=== PATIENT | female | born 1965 | race Caucasian/White ===

== ENCOUNTER 2017-01-04 20:15 | Emergency (ER) | payer SELFPAY ==
[~2017-01-04] VITALS: Ht 162.5 cm; Wt 52.2 kg
== END 2017-01-04 22:05 | disposition left against medical advice (07) ==
LOC: ED 20:15
DX: F13.230 Sedative, hypnotic or anxiolytic dependence with withdrawal, uncomplicated (principal); F41.9 Anxiety disorder, unspecified; Z91.018 Allergy to other foods

== ENCOUNTER 2019-04-01 22:12 | Emergency (ER) | payer SELFPAY ==
[~2019-04-01] VITALS: Ht 2 cm; Wt 61.2 kg
[2019-04-02] MEDS ORDERED: NORCO 5-325 TA1 EACH PO (00:29)
== END 2019-04-02 00:54 | disposition home or self-care (01) ==
LOC: ED 22:12
DX: S52.502A Unspecified fracture of the lower end of left radius, initial encounter for closed fracture (principal); S00.12XA Contusion of left eyelid and periocular area, initial encounter; M79.631 Pain in right forearm; Z88.2 Allergy status to sulfonamides; Y04.2XXA Assault by strike against or bumped into by another person, initial encounter; Y93.89 Activity, other specified; Y92.098 Other place in other non-institutional residence as the place of occurrence of the external cause; Y99.8 Other external cause status

== ENCOUNTER → 2019-04-30 | Outpatient (CLI) | payer SELFPAY ==
[~2019-04-30] MED LIST: NORCO 5-325 TA1 EACH PO
== END | disposition home or self-care (01) ==
LOC: RAD 14:10
DX: S52.572D Other intraarticular fracture of lower end of left radius, subsequent encounter for closed fracture with routine healing (principal); M19.032 Primary osteoarthritis, left wrist; X58.XXXD Exposure to other specified factors, subsequent encounter

== ENCOUNTER → 2019-05-19 | Outpatient (CLI) | payer MEDICAID | END | disposition home or self-care (01) | LOC: ORTHO 01:56 | DX: S52.572D Other intraarticular fracture of lower end of left radius, subsequent encounter for closed fracture with routine healing (principal); X58.XXXD Exposure to other specified factors, subsequent encounter ==

== ENCOUNTER → 2019-06-01 | Outpatient (CLI) | payer OTHER | END | disposition home or self-care (01) | LOC: ORTHO 00:39 | DX: S52.572D Other intraarticular fracture of lower end of left radius, subsequent encounter for closed fracture with routine healing (principal); X58.XXXD Exposure to other specified factors, subsequent encounter ==

== ENCOUNTER 2019-11-27 20:17 | Inpatient (IN) | payer OTHER ==
[~2019-11-27] VITALS: Ht 162.6 cm; Wt 79.4 kg
[2019-11-27 20:40] VITALS: BP 138/87
[2019-11-27 21:09] LABS: BILIRUBIN NEGATIVE (NEGATIVE); BLOOD NEGATIVE (NEGATIVE); CLARITY CLEAR (CLEAR); COLOR YELLOW (YELLOW); GLUCOSE NEGATIVE (NEGATIVE); KETONE NEGATIVE (NEGATIVE); NITRITE NEGATIVE (NEGATIVE); UROBILINOGEN 0.2 E.U./dl (0.2-1.0)
[2019-11-27 21:10] LABS: LEUKO ESTERASE TRACE (NEGATIVE); WBC 0-2 wbc/hpf (0-5)
[2019-11-27 21:29] LABS: BASO # 0.1 10*3/uL (0.0-0.1); BASO % 0.6 % (0.0-1.0); EOS # 0.1 10*3/uL (0.0-0.4); EOS % 1.5 % (1.0-4.0); HEMATOCRIT 36.5 % (37.0-47.0); LYMPH # 2.5 10*3/uL (1.3-4.4); LYMPH % 31.5 % (27.0-41.0); MEAN CELL VOLUME 102.2 fl (81.0-99.0); MEAN CORPUSCULAR HGB 35.9 pg (27.0-31.0); MEAN CORPUSCULAR HGB CONC 35.1 g/dl (33.0-37.0); MEAN PLATELET VOLUME 10.6 fl (9.6-12.3); MONO # 0.7 10*3/uL (0.1-1.0); MONO % 8.4 % (3.0-9.0); NEUT # 4.6 10*3/uL (2.3-7.9); NEUT % 57.8 % (47.0-73.0); PLATELET COUNT AUTOMATED 192 10*3/uL (130-400); RED BLOOD COUNT 3.57 10*6/uL (4.10-5.10); RED CELL DISTRI WIDTH 15.4 % (0-14.5)
[2019-11-27 21:40] LABS: ACT PARTIAL THROMBO TIME 25.1 SECONDS (20.0-32.1); INTERNATIONAL NORM RATIO 0.9 (2.0-3.5)
[2019-11-27 22:39] LABS: BUN 8 mg/dl (7-24); CREATININE 0.71 mg/dL (0.55-1.02); SODIUM 134 mmol/L (136-145)
[2019-11-27 22:40] LABS: ALBUMIN 2.8 gm/dl (3.1-4.5); ALKALINE PHOSPHATASE 318 U/L (45-117); CHLORIDE 105 mmol/L (98-107); LIPASE 946 U/L (73-393); POTASSIUM 4.6 mmol/L (3.5-5.1); SGOT/AST 339 IU/L (3-35); SGPT/ALT 158 U/L (12-78); TOTAL PROTEIN 6.7 gm/dL (6.4-8.2)
[2019-11-28 02:24] VITALS: BP 132/80
--- NOTE | 2019-11-28 02:50 | NUR ---
A 54, admitted to , under the services of WINSOME Osorio DO with a diagnosis of TRANSAMINITIS; MACROCYTIC ANEMIA, BACK PAIN. Chief complaint is C/O BACK PAIN. Patient arrived via stretcher from ER. Monitor applied. Initial assessment completed. Vital signs taken and recorded. WINSOME OSORIO DO notified of admission to the unit. Orders received. See assessment for past medical history, medications and allergies. Patient and/or family oriented to unit. [facility] visitation policy reviewed. Clothing/patient valuable form completed. FRANCISCO J DICKERSON
--- NOTE | 2019-11-28 03:30 | NUR ---
MEDICATED WITH ROBAXIN FOR MUSCLE ACHES; NORCO FOR C/O BACK PAIN & RESTORIL FOR SLEEP. CALL LIGHT WITHIN REACH.
[2019-11-28] MEDS ORDERED: OMEPRAZOLE40 MG PO (03:44)
--- NOTE | 2019-11-28 04:25 | NUR ---
RESTING IN BED WITH EYES CLOSED; MEDICATIONS GIVEN EARLIER APPARENTLY EFFECTIVE. IV FLUIDS INFUSING ORDERED; SITE ASYMPTOMATIC. CALL LIGHT WITHIN REACH; BED ALARM ON.
[2019-11-28 06:05] LABS: BASO % 0.4 % (0.0-1.0); EOS # 0.2 10*3/uL (0.0-0.4); EOS % 2.4 % (1.0-4.0); HEMATOCRIT 32.7 % (37.0-47.0); LYMPH % 28.6 % (27.0-41.0); MEAN CELL VOLUME 105.1 fl (81.0-99.0); MEAN CORPUSCULAR HGB 35.4 pg (27.0-31.0); MEAN CORPUSCULAR HGB CONC 33.6 g/dl (33.0-37.0); MEAN PLATELET VOLUME 10.7 fl (9.6-12.3); MONO # 0.5 10*3/uL (0.1-1.0); MONO % 6.5 % (3.0-9.0); NEUT # 4.3 10*3/uL (2.3-7.9); NEUT % 61.5 % (47.0-73.0); PLATELET COUNT AUTOMATED 156 10*3/uL (130-400); RED BLOOD COUNT 3.11 10*6/uL (4.10-5.10)
[2019-11-28 06:23] LABS: ALBUMIN 2.2 gm/dl (3.1-4.5); ALKALINE PHOSPHATASE 254 U/L (45-117); BUN 6 mg/dl (7-24); CHLORIDE 106 mmol/L (98-107); CREATININE 0.67 mg/dL (0.55-1.02); SGOT/AST 194 IU/L (3-35); SODIUM 135 mmol/L (136-145); TOTAL PROTEIN 5.5 gm/dL (6.4-8.2)
[2019-11-28 06:44] LABS: SGPT/ALT 140 U/L (12-78)
--- NOTE | 2019-11-28 10:28 | NUR ---
PT MEDICATED WITH ATIVAN 1MG 1V PER PRN ORDER FOR C/O ANXIETY.
--- NOTE | 2019-11-28 10:29 | NUR ---
PT MEDICATED WITH BENTYL 20MG PO PER PRN ORDER FOR C/O STOMACH ACHES. PT ALSO MEDICATED WITH ROBAXIN 750MG PO PER PRN ORDER AT THIS TIME FOR C/O BACK MUSCLE ACHES.
--- NOTE | 2019-11-28 10:44 | NUR ---
NOTIFIED DR HAGEN OF PT REQUEST FOR ZOFRAN.
[2019-11-28 12:00] VITALS: BP 98/68
--- NOTE | 2019-11-28 14:01 | NUR ---
PT GIVEN NORCO 5/325MG PO PER PRN ORDER FOR C/O PAIN.
[2019-11-28 16:00] VITALS: BP 105/70
--- NOTE | 2019-11-28 16:45 | NUR ---
PT MEDICATED WITH ATIVAN 1MG PO PER PRN ORDER FOR C/O ANXIETY. PT ALSO MEDICATED WITH ROBAXIN 750MG PO PER PRN ORDER AT THIS TIME FOR C/O LOWER BACK ACHES.
[2019-11-28 20:00] VITALS: BP 90/50
--- NOTE | 2019-11-28 20:50 | NUR ---
ZOFRAN GIVEN FOR NAUSEA, ATIVAN GIVEN FOR ANXIETY, AND RESTORIL GIVEN FOR SLEEP.
--- NOTE | 2019-11-28 21:45 | NUR ---
MEDICATION EFFECTIVE, PATIENT SLEEPING COMFORTABLY IN ROOM
--- NOTE | 2019-11-28 23:27 | NUR ---
NROCO GIVEN FOR PAIN RATED A 8 OUT OF 10 TO THE BACK AND SIDE
[2019-11-29] VITALS: BP 91/62
--- NOTE | 2019-11-29 00:28 | NUR ---
24 HR chart check completed.
--- NOTE | 2019-11-29 04:15 | NUR ---
ATIVAN AND MORPHINE GIVEN FOR PAIN RATED A 8 OUT OF 10 TO THE BACK AND ABDOMEN AND ANXIETY
--- NOTE | 2019-11-29 05:15 | NUR ---
ATIVAN AND MORPHINE EFFECTIVE PATIENT RESTING COMFORTABLY IN ROOM
[2019-11-29 05:56] LABS: BASO # 0.1 10*3/uL (0.0-0.1); BASO % 0.8 % (0.0-1.0); EOS # 0.2 10*3/uL (0.0-0.4); EOS % 3.8 % (1.0-4.0); HEMATOCRIT 32.3 % (37.0-47.0); LYMPH # 2.3 10*3/uL (1.3-4.4); MEAN CORPUSCULAR HGB 35.4 pg (27.0-31.0); MEAN CORPUSCULAR HGB CONC 33.1 g/dl (33.0-37.0); MEAN PLATELET VOLUME 11.2 fl (9.6-12.3); MONO # 0.5 10*3/uL (0.1-1.0); MONO % 7.6 % (3.0-9.0); NEUT # 3.1 10*3/uL (2.3-7.9); NEUT % 50.3 % (47.0-73.0); PLATELET COUNT AUTOMATED 165 10*3/uL (130-400); RED BLOOD COUNT 3.02 10*6/uL (4.10-5.10); RED CELL DISTRI WIDTH 16.3 % (0-14.5); WHITE BLOOD COUNT 6.1 10*3/uL (4.8-10.8)
[2019-11-29 05:58] LABS: ALKALINE PHOSPHATASE 239 U/L (45-117); BUN 5 mg/dl (7-24); CHLORIDE 110 mmol/L (98-107); CREATININE 0.66 mg/dL (0.55-1.02); LIPASE 181 U/L (73-393); POTASSIUM 3.2 mmol/L (3.5-5.1); SGOT/AST 119 IU/L (3-35); SGPT/ALT 87 U/L (12-78); SODIUM 140 mmol/L (136-145); TOTAL PROTEIN 5.3 gm/dL (6.4-8.2)
--- NOTE | 2019-11-29 06:11 | NUR ---
CALLED FOR POTASSIUM LEVEL 3.2 AND ALBUMIN LEVEL 2.0
--- NOTE | 2019-11-29 09:43 | NUR ---
PT MEDICATED WITH ROBAXIN 750MG PO PER PRN ORDER FOR C/O BACK ACHES. PT ALSO MEDICATED WITH ZOFRAN 4MG IV PER PRN ORDER FOR C/O NAUSEA AT THIS TIME.
--- NOTE | 2019-11-29 09:50 | NUR ---
ROUNDED TO SEE PATIENT AND ANSWERED ALL OF THE PATIENT'S QUESTIONS. PATIENT VERBALIZES THAT SHE UNDERSTANDS CURRENT CONDITION.
[2019-11-29 12:00] VITALS: BP 119/72
--- NOTE | 2019-11-29 13:14 | NUR ---
PT MEDICATED WITH NORCO 5/325 PO PER PRN ORDER FOR C/O PAIN.
--- NOTE | 2019-11-29 15:37 | NUR ---
NOTIFIED DR PINO THAT PT MANUAL BP 98/40, HR 84 AND PT HAD ONLY DRANK ABOUT 180 ML OF FLUID THAT I HAVE NOTED. FLUIDS PREVIOUSSLY D/C'D. PT SLEEPY AND AROUSES EASILY. WILL CONTINUE TO MONITOR.
[2019-11-29 16:00] VITALS: BP 100/60
--- NOTE | 2019-11-29 16:32 | NUR ---
PATIENT MEDICATED WITH ATIVAN 1MG IV PER PRN ORDER FOR C/O ANXIETY.
--- NOTE | 2019-11-29 17:51 | NUR ---
PT MEDICATED WITH ZOFRAN 4MG IV PER PRN ORDER FOR C/O NAUSEA.
[2019-11-29 20:00] VITALS: BP 101/75
--- NOTE | 2019-11-29 21:00 | NUR ---
PT MEDICATED WITH PRN NORCO FOR C/O ABDOMINAL AND BACK PAIN RATED A 6/10. WILL MONITOR FOR EFFECTIVENESS.
[2019-11-30] VITALS: BP 104/64
[2019-11-30 06:15] LABS: BASO % 0.6 % (0.0-1.0); EOS # 0.2 10*3/uL (0.0-0.4); EOS % 4.3 % (1.0-4.0); HEMATOCRIT 34.3 % (37.0-47.0); LYMPH % 43.3 % (27.0-41.0); MEAN CELL VOLUME 106.9 fl (81.0-99.0); MEAN CORPUSCULAR HGB 34.3 pg (27.0-31.0); MEAN CORPUSCULAR HGB CONC 32.1 g/dl (33.0-37.0); MEAN PLATELET VOLUME 10.9 fl (9.6-12.3); MONO # 0.4 10*3/uL (0.1-1.0); MONO % 7.6 % (3.0-9.0); NEUT % 43.3 % (47.0-73.0); PLATELET COUNT AUTOMATED 167 10*3/uL (130-400); RED BLOOD COUNT 3.21 10*6/uL (4.10-5.10); RED CELL DISTRI WIDTH 16.6 % (0-14.5); WHITE BLOOD COUNT 4.6 10*3/uL (4.8-10.8)
[2019-11-30 06:25] LABS: BUN 3 mg/dl (7-24); CHLORIDE 111 mmol/L (98-107); CHOLESTEROL 406 mg/dL (<200); POTASSIUM 3.9 mmol/L (3.5-5.1); SGOT/AST 100 IU/L (3-35); SGPT/ALT 78 U/L (12-78); SODIUM 143 mmol/L (136-145); TRIGLYCERIDES 212 mg/dl (<150); VLDL CHOLESTEROL 42 mg/dL (6-40)
[2019-11-30 06:27] LABS: ALKALINE PHOSPHATASE 239 U/L (45-117); HDL CHOLESTEROL 31 mg/dl (40-60); LDL CHOLESTEROL 333 mg/dL (9-159); TOTAL PROTEIN 5.4 gm/dL (6.4-8.2)
[2019-11-30 08:00] VITALS: BP 110/66
--- NOTE | 2019-11-30 08:42 | NUR ---
MEDICATED WITH PRN PO NORCO FOR BACK AND HIPS PAIN.
--- NOTE | 2019-11-30 09:00 | NUR ---
Customer Acquisition Manager in to talk to patient. Patient states lives at home with mother. There are no steps in the home. 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 EZEQUIEL BRUCE
--- NOTE | 2019-11-30 09:40 | NUR ---
PRN PO NORCO NOT EFFECTIVE, PER PATIENT.
--- NOTE | 2019-11-30 10:18 | NUR ---
MEDICATED WITH PRN IV MORPHINE AND PRN PO ROBAXIN FOR UNRELEIVED HIPS AND BACK PAIN.
--- NOTE | 2019-11-30 11:18 | NUR ---
PRN MORPHINE AND ROBAXIN EFFECTIVE, PER PATIENT.
[2019-11-30 12:00] VITALS: BP 144/75
--- NOTE | 2019-11-30 14:25 | NUR ---
PATIENT WITH COMPLAINTS OF PAIN, ADMINISTERED PO PRN NORCO.
--- NOTE | 2019-11-30 15:19 | NUR ---
PRN PO NORCO SOMEWHAT EFFECTIVE, PER PATIENT.
[2019-11-30 16:00] VITALS: BP 112/71
--- NOTE | 2019-11-30 16:25 | NUR ---
PATIENT STATES THAT SHE IS HAVING SOME PAIN AND ANXIETY, ADMINISTERED IV ATIVAN AND IV MORPHINE FOR THESE SYMPTOMS
--- NOTE | 2019-11-30 16:54 | NUR ---
MORPHINE EFFECTIVE PER PATIENT
[2019-11-30 20:00] VITALS: BP 100/55
[2019-12-01] VITALS: BP 100/63
[2019-12-01 06:28] LABS: HEMATOCRIT 31.9 % (37.0-47.0); MEAN CELL VOLUME 109.6 fl (81.0-99.0); MEAN CORPUSCULAR HGB 35.1 pg (27.0-31.0); MEAN PLATELET VOLUME 10.6 fl (9.6-12.3); PLATELET COUNT AUTOMATED 172 10*3/uL (130-400); RED BLOOD COUNT 2.91 10*6/uL (4.10-5.10); RED CELL DISTRI WIDTH 16.6 % (0-14.5); WHITE BLOOD COUNT 4.6 10*3/uL (4.8-10.8)
[2019-12-01 06:39] LABS: ALBUMIN 1.9 gm/dl (3.1-4.5); BUN 5 mg/dl (7-24); CHLORIDE 111 mmol/L (98-107); CREATININE 0.63 mg/dL (0.55-1.02); LIPASE 241 U/L (73-393); POTASSIUM 3.8 mmol/L (3.5-5.1); SGOT/AST 91 IU/L (3-35); SGPT/ALT 70 U/L (12-78); SODIUM 142 mmol/L (136-145); TOTAL PROTEIN 5.3 gm/dL (6.4-8.2)
[2019-12-01 06:40] LABS: ALKALINE PHOSPHATASE 228 U/L (45-117)
[2019-12-01 07:18] LABS: BASOPHILS 1 % (0-1); TOTAL CELLS COUNTED 100 #CELLS
[2019-12-01 07:19] LABS: PLATELET SUFFICIENCY NORMAL (NORMAL); POLYCHROMASIA SLIGHT
[2019-12-01 08:00] VITALS: BP 146/94
--- NOTE | 2019-12-01 09:00 | NUR ---
case management visits with patient, she states she is a possibly discharge to home today, she denies any home needs
--- NOTE | 2019-12-01 10:08 | NUR ---
NORCO ADMINISTERED FOR PT C/O 12/06 RIGHT BACK PAIN. WILL MONITOR AND REASSESS.
[2019-12-01] MEDS ORDERED: NORCO 5-325 TA1 EACH PO (11:16)
[2019-12-01] MEDS ORDERED: LIPITOR40 MG PO (12:21)
--- NOTE | 2019-12-01 13:23 | NUR ---
Discharge instructions reviewed with patient/family. Patient receptive and verbalizes understanding. Follow-up care arranged. Written instructions given to patient/family. Script for norco given to patient. Hep lock removed from right upper arm. All belongings left with patient. Off the floor at this time. GIANNA BINGHAM
== END 2019-12-01 13:28 | disposition home or self-care (01) | DRG 241 ==
LOC: ED 20:17 → EDHOLD 11-28 01:38 → 4E 11-28 01:38
PROVIDERS: Emergency Medicine Emergency Medical Services; Family Medicine; Internal Medicine; Student in an Organized Health Care Education/Training Program; ADMIT Internal Medicine
DX: K29.80 Duodenitis without bleeding (principal); K85.20 Alcohol induced acute pancreatitis without necrosis or infection; R74.0 Nonspecific elevation of levels of transaminase and lactic acid dehydrogenase [LDH]; E87.1 Hypo-osmolality and hyponatremia; R73.9 Hyperglycemia, unspecified; E83.41 Hypermagnesemia; E80.6 Other disorders of bilirubin metabolism; F10.10 Alcohol abuse, uncomplicated; F41.9 Anxiety disorder, unspecified; D53.9 Nutritional anemia, unspecified; E83.39 Other disorders of phosphorus metabolism; E87.6 Hypokalemia; E87.8 Other disorders of electrolyte and fluid balance, not elsewhere classified; K76.0 Fatty (change of) liver, not elsewhere classified; E43 Unspecified severe protein-calorie malnutrition; M19.90 Unspecified osteoarthritis, unspecified site; F17.210 Nicotine dependence, cigarettes, uncomplicated; Z71.6 Tobacco abuse counseling; Z88.2 Allergy status to sulfonamides; Z82.49 Family history of ischemic heart disease and other diseases of the circulatory system; Z82.3 Family history of stroke; Z80.8 Family history of malignant neoplasm of other organs or systems; Z82.5 Family history of asthma and other chronic lower respiratory diseases; Z98.51 Tubal ligation status; Z68.29 Body mass index [BMI] 29.0-29.9, adult

== ENCOUNTER → 2020-07-15 | Outpatient (CLI) | payer OTHER ==
[~2020-07-15] MED LIST changes: +LIPITOR40 MG PO; +MACROBID100 M1 PO; +OMEPRAZOLE40 MG PO
== END | disposition home or self-care (01) ==
LOC: CT 12:41
PROVIDERS: ATTEND Internal Medicine
DX: R10.9 Unspecified abdominal pain (principal)

== ENCOUNTER 2020-07-18 15:37 | Emergency (ER) | payer OTHER ==
[~2020-07-18] VITALS: Ht 162.5 cm; Wt 82.6 kg
[~2020-07-18 15:37] MED LIST changes: -MACROBID100 M1 PO
[2020-07-18 16:33] LABS: BASO # 0.1 10*3/uL (0.0-0.1); EOS # 0.1 10*3/uL (0.0-0.4); EOS % 1.6 % (1.0-4.0); HEMATOCRIT 39.7 % (37.0-47.0); LYMPH # 2.6 10*3/uL (1.3-4.4); LYMPH % 41.6 % (27.0-41.0); MEAN CELL VOLUME 101.8 fl (81.0-99.0); MEAN CORPUSCULAR HGB 34.6 pg (27.0-31.0); MEAN PLATELET VOLUME 10.2 fl (9.6-12.3); MONO # 0.4 10*3/uL (0.1-1.0); MONO % 6.9 % (3.0-9.0); NEUT % 48.4 % (47.0-73.0); PLATELET COUNT AUTOMATED 235 10*3/uL (130-400); RED CELL DISTRI WIDTH 13.2 % (0-14.5); WHITE BLOOD COUNT 6.2 10*3/uL (4.8-10.8)
[2020-07-18 16:50] LABS: ALBUMIN 3.5 gm/dl (3.1-4.5); ALKALINE PHOSPHATASE 131 U/L (45-117); BUN 15 mg/dl (7-24); CHLORIDE 105 mmol/L (98-107); CREATININE 0.88 mg/dL (0.55-1.02); LIPASE 88 U/L (73-393); POTASSIUM 3.7 mmol/L (3.5-5.1); SGOT/AST 63 IU/L (3-35); SGPT/ALT 58 U/L (12-78); SODIUM 142 mmol/L (136-145)
[2020-07-18 16:51] LABS: TROPONIN I < 0.015 ng/ml (<0.045)
[2020-07-18 17:18] LABS: BILIRUBIN Negative (Negative); BLOOD Negative (Negative); CLARITY Clear (Clear); COLOR Yellow (Yellow); GLUCOSE Negative (Negative); KETONE Negative (Negative); LEUKO ESTERASE Trace (Negative); NITRITE Negative (Negative); SPECIFIC GRAVITY 1.015 (1.001-1.030); UROBILINOGEN 0.2 E.U./dl (0.0-1.0)
[2020-07-18 17:24] LABS: BACTERIA 2+; HYALINE CAST 0-2; RBC 0-2 rbc/hpf (0-2)
[2020-07-18] MEDS ORDERED: MACROBID100 M1 PO (18:09)
== END 2020-07-18 18:12 | disposition home or self-care (01) ==
LOC: ED 15:37
PROVIDERS: Emergency Medicine
DX: N39.0 Urinary tract infection, site not specified (principal); F17.200 Nicotine dependence, unspecified, uncomplicated; Z79.899 Other long term (current) drug therapy; Z88.0 Allergy status to penicillin; Z88.2 Allergy status to sulfonamides

== ENCOUNTER → 2021-02-22 | Outpatient (CLI) | payer OTHER ==
[~2021-02-22] MED LIST changes: +MACROBID100 M1 PO
[2021-02-22 10:17] LABS: BASO # 0.1 10*3/uL (0.0-0.1); BASO % 0.9 % (0.0-1.0); EOS % 0.5 % (1.0-4.0); HEMATOCRIT 42.3 % (37.0-47.0); LYMPH % 30.9 % (27.0-41.0); MEAN CELL VOLUME 106.3 fl (81.0-99.0); MEAN CORPUSCULAR HGB 35.2 pg (27.0-31.0); MEAN CORPUSCULAR HGB CONC 33.1 g/dl (33.0-37.0); MEAN PLATELET VOLUME 9.9 fl (9.6-12.3); MONO # 0.5 10*3/uL (0.1-1.0); MONO % 7.3 % (3.0-9.0); NEUT # 3.8 10*3/uL (2.3-7.9); NEUT % 59.8 % (47.0-73.0); PLATELET COUNT AUTOMATED 247 10*3/uL (130-400); RED BLOOD COUNT 3.98 10*6/uL (4.10-5.10); RED CELL DISTRI WIDTH 13.2 % (0-14.5); WHITE BLOOD COUNT 6.4 10*3/uL (4.8-10.8)
[2021-02-22 10:59] LABS: ALBUMIN 3.9 gm/dl (3.1-4.5); ALKALINE PHOSPHATASE 126 U/L (45-117); BUN 6 mg/dl (7-24); CHLORIDE 101 mmol/L (98-107); CHOLESTEROL 313 mg/dL (<200); CREATININE 0.86 mg/dL (0.55-1.02); FREE T4 0.75 ng/dl (0.76-1.46); LDL CHOLESTEROL 149 mg/dL (9-159); POTASSIUM 3.2 mmol/L (3.5-5.1); SGOT/AST 70 IU/L (3-35); SGPT/ALT 48 U/L (12-78); SODIUM 138 mmol/L (136-145); TOTAL PROTEIN 7.8 gm/dL (6.4-8.2); TRIGLYCERIDES 383 mg/dl (<150)
[2021-02-22 11:19] LABS: VITAMIN D, 25-HYDROXY 25.6 ng/mL (30-100)
== END | disposition home or self-care (01) ==
LOC: LAB 09:15 → CARD 09:30
PROVIDERS: ATTEND Internal Medicine
DX: R06.02 Shortness of breath (principal); I10 Essential (primary) hypertension; E78.2 Mixed hyperlipidemia; E55.9 Vitamin D deficiency, unspecified; Z13.1 Encounter for screening for diabetes mellitus; Z00.00 Encounter for general adult medical examination without abnormal findings

== ENCOUNTER → 2021-06-27 | Outpatient (CLI) | payer OTHER | END | disposition home or self-care (01) | LOC: CARD 14:00 | PROVIDERS: ATTEND Internal Medicine Cardiovascular Disease | DX: R07.89 Other chest pain (principal); Z86.79 Personal history of other diseases of the circulatory system ==

== ENCOUNTER 2022-01-07 12:31 | Emergency (ER) | payer OTHER ==
[~2022-01-07] VITALS: Ht 162.5 cm; Wt 76.7 kg
[2022-01-07 17:24] LABS: BASO # 0.1 10*3/uL (0.0-0.1); EOS # 0.1 10*3/uL (0.0-0.4); HEMATOCRIT 46.5 % (37.0-47.0); LYMPH # 2.1 10*3/uL (1.3-4.4); LYMPH % 29.7 % (27.0-41.0); MEAN CELL VOLUME 101.5 fl (81.0-99.0); MEAN CORPUSCULAR HGB 34.3 pg (27.0-31.0); MEAN CORPUSCULAR HGB CONC 33.8 g/dl (33.0-37.0); MEAN PLATELET VOLUME 10.1 fl (9.6-12.3); MONO # 0.4 10*3/uL (0.1-1.0); MONO % 5.8 % (3.0-9.0); NEUT # 4.4 10*3/uL (2.3-7.9); NEUT % 62.1 % (47.0-73.0); PLATELET COUNT AUTOMATED 302 10*3/uL (130-400); RED BLOOD COUNT 4.58 10*6/uL (4.10-5.10); RED CELL DISTRI WIDTH 13.2 % (0-14.5)
[2022-01-07 17:41] LABS: ALKALINE PHOSPHATASE 156 U/L (45-117); BUN 9 mg/dl (7-24); CHLORIDE 106 mmol/L (98-107); CREATININE 0.79 mg/dL (0.55-1.02); POTASSIUM 4.5 mmol/L (3.5-5.1); SGOT/AST 63 IU/L (3-35); SGPT/ALT 55 U/L (12-78); SODIUM 135 mmol/L (136-145); TOTAL PROTEIN 7.8 gm/dL (6.4-8.2)
== END 2022-01-07 21:45 | disposition home or self-care (01) ==
LOC: ED 12:31
PROVIDERS: Nurse Practitioner Family
DX: S20.219A Contusion of unspecified front wall of thorax, initial encounter (principal); S00.81XA Abrasion of other part of head, initial encounter; M25.561 Pain in right knee; Z88.0 Allergy status to penicillin; Z88.2 Allergy status to sulfonamides; Z79.2 Long term (current) use of antibiotics; Z79.899 Other long term (current) drug therapy; W18.39XA Other fall on same level, initial encounter; Y93.89 Activity, other specified; Y92.89 Other specified places as the place of occurrence of the external cause; Y99.8 Other external cause status

== ENCOUNTER 2022-05-17 14:05 | Emergency (ER) | payer OTHER ==
[~2022-05-17] VITALS: Ht 162.5 cm; Wt 77.1 kg
[2022-05-17 15:05] LABS: BASO # 0.1 10*3/uL (0.0-0.1); EOS # 0.3 10*3/uL (0.0-0.4); EOS % 3.4 % (1.0-4.0); HEMATOCRIT 46.4 % (37.0-47.0); LYMPH # 2.5 10*3/uL (1.3-4.4); LYMPH % 31.3 % (27.0-41.0); MEAN CELL VOLUME 97.3 fl (81.0-99.0); MEAN CORPUSCULAR HGB 32.3 pg (27.0-31.0); MEAN CORPUSCULAR HGB CONC 33.2 g/dl (33.0-37.0); MEAN PLATELET VOLUME 10.1 fl (9.6-12.3); MONO # 0.5 10*3/uL (0.1-1.0); NEUT # 4.6 10*3/uL (2.3-7.9); NEUT % 57.9 % (47.0-73.0); PLATELET COUNT AUTOMATED 406 10*3/uL (130-400); RED BLOOD COUNT 4.77 10*6/uL (4.10-5.10); RED CELL DISTRI WIDTH 13.2 % (0-14.5)
[2022-05-17 15:21] LABS: ALKALINE PHOSPHATASE 148 U/L (46-116); BUN 9 mg/dl (9-23); CHLORIDE 99 mmol/L (98-107); LIPASE 31 U/L (12-53); POTASSIUM 4.6 mmol/L (3.4-5.1); SGPT/ALT 21 U/L (10-49); TOTAL PROTEIN 7.5 gm/dL (6.0-8.0)
[2022-05-17 16:06] LABS: BILIRUBIN Negative (Negative); BLOOD Negative (Negative); CLARITY Clear (Clear); COLOR Yellow (Yellow); GLUCOSE Negative (Negative); KETONE Negative (Negative); LEUKO ESTERASE Negative (Negative); NITRITE Negative (Negative); PH 7.5 (4.5-8.0); SPECIFIC GRAVITY 1.015 (1.001-1.030)
[2022-05-17 17:22] LABS: RBC 0-2 rbc/hpf (0-2); WBC 0-2 wbc/hpf (0-5)
== END 2022-05-17 19:10 | disposition home or self-care (01) ==
LOC: ED 14:05
PROVIDERS: Nurse Practitioner Family
DX: K44.9 Diaphragmatic hernia without obstruction or gangrene (principal); Z88.0 Allergy status to penicillin; Z88.2 Allergy status to sulfonamides; Z98.51 Tubal ligation status

== ENCOUNTER → 2024-09-18 | Outpatient (CLI) | payer MEDICARE | END | disposition home or self-care (01) | LOC: US 09-03 13:30 | PROVIDERS: ATTEND Family Medicine | DX: K76.0 Fatty (change of) liver, not elsewhere classified (principal); R10.84 Generalized abdominal pain; R10.2 Pelvic and perineal pain ==